=== PATIENT | female | born 2000 | race Two or more races ===

== ENCOUNTER 2023-10-13 15:29 | Emergency (ER) | payer MEDICAID, OTHER ==
[~2023-10-13] VITALS: Ht 157.5 cm; Wt 67.1 kg
[2023-10-13 16:32] LABS: Urine Bacteria NONE SEEN /hpf (None Seen); Urine Blood TRACE /uL (Negative); Urine Clarity Clear (Clear); Urine Color Yellow (Yellow); Urine Mucus FEW (None Seen); Urine Protein, UAD Negative (Negative); Urine Specific Gravity 1.022 (1.001-1.035); Urine Urobilinogen Normal (Negative); Urine WBC 1 /hpf (0 - 5)
[2023-10-13 16:49] LABS: Chloride 109 mmol/L (98-107); Sodium 139 mmol/L (136-145)
[2023-10-13 16:50] LABS: Anion Gap 6 (5-15); Carbon Dioxide 24 mmol/L (20-30)
[2023-10-13 16:51] LABS: Calcium 9.4 mg/dL (8.5-10.1)
[2023-10-13 16:55] LABS: Blood Urea Nitrogen 6 mg/dL (9-23); Glucose 95 mg/dL (74-106)
[2023-10-13 17:00] LABS: Basophils # (auto) 0 10 ^3/uL (0-0.2); Basophils % (auto) 0.1 % (0.0-2.0); Eosinophils # (auto) 0.1 10 ^3/uL (0-0.8); Eosinophils % (auto) 1.1 % (0.0-7.0); Hematocrit 43.2 % (36.0-46.0); Hemoglobin 14.1 g/dL (12.2-16.2); Lymphocytes # (auto) 0.8 10 ^3/uL (0.4-5.4); Lymphocytes % (auto) 7.5 % (10.0-50.0); Mean Corpuscular Hemoglobin 28.9 pg (28.0-32.0); Mean Corpuscular Hgb Conc. 32.7 g/dL (32.0-36.0); Mean Corpuscular Volume 88.4 fL (80.0-100.0); Monocytes # (auto) 0.4 10 ^3/uL (0-1.3); Monocytes % (auto) 3.4 % (0.0-12.0); Neutrophils # (auto) 9.3 10 ^3/uL (1.6-8.6); Neutrophils % (auto) 87.9 % (37.0-80.0); Red Blood Cells 4.88 10^6/uL (4.0-5.20); White Blood Cell 10.5 10^3/uL (4.4-10.8)
[2023-10-13] MEDS ORDERED: LIDOCAINE VISCOUS 2% 15ML UD MT ONE (17:15)
[2023-10-13] MEDS ORDERED: MAALOX PLUS or MAALOX 30 ML PO ONE (17:15)
[2023-10-13] MEDS ORDERED: ONDANSETRON ODT 4 MG TAB PO ONE (17:15)
[2023-10-13 17:20] VITALS: BP 119/74; PULSE 97; RESP 18; TEMP 97.8; O2SAT 98
[2023-10-13] MEDS ORDERED: PANT40T PO (18:16)
== END 2023-10-13 18:41 | disposition home or self-care (01) ==
LOC: ER 15:29
DX: K29.70 Gastritis, unspecified, without bleeding (principal); R10.2 Pelvic and perineal pain; Z32.02 Encounter for pregnancy test, result negative
CPT/HCPCS: 36415; 80048; 81001; 81025; 84702; 85025; 99283; Q0162

== ENCOUNTER 2025-04-06 15:58 | Emergency (ER) | payer MEDICAID, OTHER ==
[~2025-04-06] VITALS: Ht 154.9 cm; Wt 73.2 kg
[~2025-04-06 15:58] MED LIST: PANT40T PO
[2025-04-06 16:11] VITALS: BP 139/89; TEMP 98
[2025-04-06] MEDS ORDERED: CEPH250C PO (16:15)
[2025-04-06] MEDS ORDERED: IBUP-1455 PO (16:15)
--- NOTE | 2025-04-06 16:15 | ED.PDOC ---
History of Present Illness(SKN HPI Comments This patient is a pleasant 24-year-old female who arrives the ED today for evaluation of right cheek swelling for the past day. Patient states she has a confluence of pimples on the cheek and that one had ruptured internally. Patient arrives with complaints of internal swelling and pain throughout the si te. No drainage noted at time of evaluation. Vitals were stable. Time Seen by MD: 16:04 Primary Care Provider: NONE History of Present Illness: Nurses Notes Allergies: Coded Allergies: NO KNOWN ALLERGIES (Unverified , 10/13/23) Home Meds Active Scripts Pantoprazole Sodium Sesquihydr (Pantoprazole Sodium) 40 Mg Tab, 40 MG PO DAILY, #30 TAB Prov:FRITZ GLOVER 10/13/23 Information Source: Patient Severity: Mild Timing: Days Duration: Since onset Prehospital treatment: None Location: Face Mechanism: Spontaneous Onset Object: None Condition of Object: None Tetanus: UTD Associated Signs and Symptoms: Other (History of acne) Past Medical History PAST MEDICAL HISTORY: Denies Past Medical History (Other): History of acne Surgical History: Denies all surgeries [employer]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 History Social History Smoker: Non-Smoker Alcohol: Denies ETOH Use Drugs: Denies Drug Use Lives In: Home Constitutional: denies: chills, diaphoresis, fatigue, fever, malaise, sweats, weakness, others EENTM: denies: blurred vision, double vision, ear bleeding, ear discharge, ear drainage, ear pain, ear ringing, eye pain, eye redness, hearing loss, mouth pain, mouth swelling, nasal discharge, nose bleeding, nose congestion, nose pain, photophobia, tearing, throat pain, throat swelling, voice changes, others Respiratory: denies: cough, hemoptysis, orthopnea, SOB at rest, shortness of breath, SOB with excertion, stridor, wheezing, others Cardiovascular: denies: chest pain, dizzy spells, diaphoresis, Dyspnea on exertion, edema, irregular heart beat, left arm pain, lightheadedness, palpitations, PND, syncope, others Gastrointestinal: denies: abdomen distended, abdominal pain, blood streaked bowels, constipated, diarrhea, dysphagia, difficulty swallowing, hematemesis, melena, nausea, poor appetite, poor fluid intake, rectal bleeding, rectal pain, vomiting, others Genitourinary: denies: abnormal vagina bleeding, burning, dyspareunia, dysuria, flank pain, frequency, hematuria, incontinence, pain, , vagina discharge, urgency, others Neurological: denies: dizziness, fainting, headache, left sided numbness, left sided weakness, numbness, paresthesia, pre-existing deficit, right sided numbness, right sided weakness, seizure, speech problems, tingling, tremors, weakness, others Musculoskeletal: denies: back pain, gout, joint pain, joint swelling, muscle pain, muscle stiffness, neck pain, others Integumetry: reports: others (Right cheek pain); denies: bruises, change in color, change in hair/nails, dryness, laceration, lesions, lumps, rash, wounds Allergic/Immunocompromised: denies: Difficulty Healing, Frequent Infections, Hives, Itching, others Hematologic/Lymphatic: denies: anemia, blood clots, easy bleeding, easy bruising, swollen glands, others Endocrine: denies: excessive hunger, excessive sweating, excessive thirst, excessive urination, flushing, intolerance to cold, intolerance to heat, unexplained weight gain, unexplained weight loss, others Psychiatric: denies: anxiety, bipolar disorder, depression, hopeless, panic disorder, schizophrenia, sleepless, suicidal, others Physical Exam General Appearance: Mild Distress (Moderate distress due to pain related to her complaints.), Normal HEENT: Pharynx Normal, TMs Normal, Other (Pain throughout an inverted only popped pimple on the right cheek. No definitive erythema, but mild edema with tenderness to palpation throughout. No drainage from the original insult site.) Neck: Full Range of Motion, Non-Tender, Normal, Normal Inspection Respiratory: Chest Non-Tender, Lungs Clear, No Accessory Muscle Use, No Respiratory Distress, Normal Breath Sounds Cardiovascular: No Edema, No JVD, No Murmur, No Gallop, Normal Peripheral Pulses, Regular Rate/Rhythm Breast Exam: Deferred Gastrointestinal: No Organomegaly, Non Tender, No Pulsatile Mass, Normal Bowel Sounds, Soft Genitalia: Deferred Pelvic: Deferred Rectal: Deferred Extremities: No calf tenderness, Normal capillary refill, Normal inspection, Normal range of motion, Non-tender, No pedal edema Neurologic: Alert, No Motor Deficits, Normal Affect, Normal Mood, No Sensory Deficits Cerebellar Function: Normal Reflexes: Normal Skin: Dry, Normal Color, Warm Lymphatic: No Adenopathy Was a procedure done? Was a procedure done?: No Differential Diagnosis (INTG) Differential Diagnosis: Cellulitis, Other (Abscess, acne) X-Ray, Labs, Meds, VS Comment Spent time discussing the condition with the patient. Advised that she has a internal infection due to the inverted popping of her pimple. Advised patient utilize antibiotics as well as warm compresses. Pain medication as needed. Time of 1ST Reevaluation: 16:13 Reevaluation 1ST: Improved Consultation: PCP Patient Education/Counseling: Diagnosis, Treatment Family Education/Counseling: Diagnosis, Treatment SEPSIS Sepsis Screen Recent Procedure: No On Antibiotic Therapy: No Respiratory Rate >20: No Heart Rate >90: No Temp<36 C (96.8 F) or >38.3 C: No SBP <90 or MAP <65 mmHG: No New Acute Mental Status Change: No Is the patient on CPAP, BIPAP,: No Departure 1 Departure Time of Disposition: 16:13 Impression: Primary Impression: Facial abscess Disposition: 01 HOME / SELF CARE / HOMELESS Condition: Stable Additional Instructions: Advise utilizing antibiotics as directed until completion as well as pain medication as needed. Warm compresses can be utilized that are no hotter than what the patient would shower in. e-Prescriptions Ibuprofen Micronized (Ibuprofen) 800 Mg Tab 800 MG PO Q8HP PRN, #20 TAB Prov: LINDA MOSHER PAC 04/06/25 Cephalexin (KEFLEX CAPSULE) 250 Mg Cp 1 CAP PO QID for 7 Days, #28 CAP Prov: LINDA MOSHER PAC 04/06/25 Discharged With: Self, Friend Critical Care Note Critical Care Time?: No Stability Stability form required: No Heart Score Heart Score: Heart Score Response (Comments) Value History N/A 0 EKG N/A 0 Age N/A 0 Risk Factors N/A 0 Troponin N/A 0 Total 0 LINDA MOSHER PAC Apr 06, 2025 16:15
[2025-04-06 17:58] VITALS: PULSE 78; RESP 19; O2SAT 97
== END 2025-04-06 17:57 | disposition home or self-care (01) ==
LOC: ER 15:58
DX: L02.01 Cutaneous abscess of face (principal); Z79.899 Other long term (current) drug therapy